=== PATIENT | female | born 1990 | race Caucasian/White ===

== ENCOUNTER 2024-03-10 23:30 | Emergency (ER) | payer BC, SELFPAY ==
[2024-03-10 23:50] VITALS: BP 147/83
[2024-03-11 00:30] VITALS: BP 113/83
--- NOTE | 2024-03-11 00:36 | ED.GENMED ---
History of Present Illness
General
Chief Complaint: Headache
Source: patient and spouse
Exam Limitations: none
Time Seen by Provider: 03/11/24 00:34
Nursing documentation reviewed up to this point in time: agreed with
Travel History
Have you had any contact with someone who has COVID-19?: No
Do you have any symptoms of coronavirus? Fever > 100 degrees, chills, cough, shortness of breath, sore throat, loss of taste or smell, muscle aches, or headache?: No
History of Present Illness
History of Present Illness:
Patient is a 33-year-old female who has frequent migraines but due to the fact that she is with twins she is unable to take her normal medications. Patient states it started around 8 AM on the left temporoparietal region with nausea and
vomiting as well as photophobia. Patient denies any recent illnesses or injuries. Patient's been having morning sickness. Patient denies fever or chills. Patient denies abdominal pain. Patient denies any focal weakness, ataxia, visual or speech
difficulties.
Past History
Past History
ED Past Medical History: Hypercholesterolemia and Other (Migraines, anxiety)
Social History
Tobacco: Non-smoker
Review of Systems
Review of Systems
All Other Systems: ROS reviewed and negative except as documented in HPI and ROS
Constitutional: Reports no symptoms
EENT: Reports no symptoms
Respiratory: Reports no symptoms
Cardiac: Reports no symptoms
ABD/GI: Reports nausea and vomiting; Denies abdominal pain or diarrhea
: Reports no symptoms
Musculoskeletal: Reports no symptoms; Denies neck pain
Skin: Reports no symptoms
Neurological: Reports headache; Denies dizzy, weakness or numbness
Hematologic/Lymphatic: Reports no symptoms
Phy Exam
Physical Exam
Physical Exam:
Physical Exam
General: mild to moderate distress, alert and appropriate, well nourished, well hydrated
HENT: Normocephalic, supple with no lymphadenopathy, no thyromegaly
Eyes: Clear sclera, conjuctiva without injection
Heart: Regular rhythm and rate. No S3, S4. No murmur. No NVD, bruit
Lungs: No respiratory distress, no stridor, lung sounds clear and equal bilaterally
Abdomen: Soft, nontender, no organomegaly, no CVA tenderness, BS good
Neuro: Alert and oriented x 3, CN II - XII intact, no motor focality, no cerebellar dysfunction
Skin: no rash
Psychiatric: well kept. interactive and cooperative
Extremities: No edema, cyanosis, tenderness, Good and equal peripheral pulses.
Scores
Heart Failure Risk
Heart Failure Risk Score: Not Applicable
Heart Score for Chest Pain Patients
STEMI patient?: Not applicable
Withdrawal Assessment of Alcohol
Withdrawal Assessment Completed?: Not applicable
Course
Orders/Labs/Results
Orders:
Orders
03/11/24 00:45
Acetaminophen 1000MG/100Ml [Ofirmev] 1,000 mg in 100 ml IV ONCE
Acetaminophen IV Indication:: ED Narcotic Naive Pt-ONCE
Diphenhydramine [Benadryl] 12.5 mg IV NOW STA
Prochlorperazine [Compazine] 10 mg IV NOW STA
03/11/24 01:45
0.9% Sodium Chloride 1000 ml [Nss] 1,000 ml IV Wide Open mls/hr
Vital Signs
Initial and Last Documented VS:
Initial Vital Signs
Temp Pulse Resp BP Pulse Ox
98.2 F 87 23 147/83 98
03/10/24 23:50 03/10/24 23:50 03/10/24 23:50 03/10/24 23:50 03/10/24 23:50
Last Documented Vital Signs
Temp Pulse Resp BP Pulse Ox
98.2 F 87 23 113/67 97
03/10/24 23:50 03/10/24 23:50 03/10/24 23:50 03/11/24 01:00 03/11/24 02:00
*Radiology
Radiology exam reviewed: other (na)
*Pulse Oximetry
Patient hypoxic: no
*EKG
Interpreted by ED Provider?: NA
*Critical Care Note
Total Time (30-74mins, 75-104mins- exclusive of procedures): Not Applicable
Update Note
Update Note:
Patient feeling much improved. Patient will be discharged
ED Attending Note
-
Portions of this chart may have been created with voice recognition software.� Occasional wrong word or��sound alike� substitutions may have occurred due to the inherent limitations of voice recognition software.
Discharge Plan
Departure
Patient Disposition: Home (Routine Discharge)
Date of Disposition: 03/11/24
Time of Disposition: 02:01
Patient with high blood pressure during this ER visit?: Yes
Condition: Good
Covid-19: Not Applicable
Discharge Problem:
Migraine headache,
Instructions: Migraines (DC), BLOOD PRESSURE
Referrals:
Gustabo Arrington MD [Family Provider] - Follow up in 5-7 days
Activity Restrictions/Additional Instructions:
Continue present medications and therapy.
Interventions
Interventions:
*Risk Screen - Suicide Last Done: 03/11/24 00:25
*General Assessment Last Done: 03/11/24 00:25
*Neglect/Abuse Screening Last Done: 03/11/24 00:25
ED- Fall Risk Assessment Last Done: 03/11/24 00:35
*ED COVID-19 Vaccine History Last Done: 03/11/24 00:25
ED- Neurological Assessment Last Done: 03/11/24 00:33
Discharge Date and Time
Print Language: TRINIDADIAN
[2024-03-11 01:00] VITALS: BP 113/67
[2024-03-11] MEDS: BENADRYL 12.5 MG IV (01:13)
[2024-03-11] MEDS: COMPAZINE 10 MG IV (01:13)
[2024-03-11] MEDS: OFIRMEV 100 IV (01:38)
[2024-03-11] MEDS: NSS 1000 IV (01:40)
== END 2024-03-11 02:10 | disposition home or self-care (01) ==
LOC: EMR 23:30
PROVIDERS: EMERGENCY PHYSICIAN Emergency Medicine; FAMILY PHYSICIAN Family Medicine
DX: O99.350 Diseases of the nervous system complicating pregnancy, unspecified trimester (principal); G43.909 Migraine, unspecified, not intractable, without status migrainosus; Z3A.00 Weeks of gestation of pregnancy not specified; O99.280 Endocrine, nutritional and metabolic diseases complicating pregnancy, unspecified trimester; E78.00 Pure hypercholesterolemia, unspecified; O99.340 Other mental disorders complicating pregnancy, unspecified trimester; F41.9 Anxiety disorder, unspecified
CPT/HCPCS: 99283; 96374; 96375; 96361